=== PATIENT | male | born 1970 | race Caucasian/White ===

== ENCOUNTER 2018-08-22 14:49 | Day surgery (SDC) | payer BC ==
[2018-08-21 16:12] VITALS: BMI 52.2
[~2018-08-22 14:49] MED LIST: PROPOFOL 200 MG/20 ML VIAL ONE
[2018-08-22] MEDS ORDERED: PROPOFOL 40 ML ONE (15:35)
--- NOTE | 2018-08-23 00:04 | ECHO ---
DATE OF SERVICE: 08/22/18 PREPROCEDURE DIAGNOSIS: Atrial flutter. PROCEDURE: Transesophageal echo. The patient was brought down to the procedural area for planned transesophageal echo. The anesthesiol ogist provided with sedation for the patient. Please see their notes for detail. Once adequate sedati on was achieved, the transesophageal probe was inserted into the mouth and into the esophagus and ort hogonal views were then obtained. Left ventricle is normal size with normal systolic function. EF estimated about -50-55%. Left atrium is mildly dilated. The left atrial appendage is large with no evidence of mass or thrombu s. Right atrium is mildly dilated. Right ventricle is normal size. The aortic valve is structural normal. No stenosis or regurgitation. Mitral valve is structurally normal. There is mild MR. Tricuspid valve is structurally normal. There is mild TR. No stenosis. Pulmonary valve is structurally normal. No significant stenosis or regurgitation.. CONCLUSIONS: 1. Normal systolic function. EF 50-55%. 2. Mildly dilated left atrium with left atrial appendage widely patent with no evidence of mass or th rombus. 3. Mild MR. 4. Mild TR
--- NOTE | 2018-08-23 07:24 | OP ---
CARDIOLOGY PROCEDURE NOTE: Date: 08/22/18 PREPROCEDURE DIAGNOSIS: Atrial flutter. PROCEDURE PERFORMED: Synchronized DC cardioversion. SUMMARY: Mr. Adams is here for a planned cardioversion. He had a ZEESHAN prior, which showed no evidence of mass or thrombus. After adequate sedation was achieved by the anesthesiology department, the pads were alrea dy placed, and the first shock was delivered in a synchronized fashion at 150 joules, which was unsuc cessful. A second shock was delivered at 200 joules, which was unsuccessful. A third shock, after swi tching the pads around, at 300 joules, successfully converted him from atrial flutter into sinus rhyt hm. This was maintained for about 5 minutes and then soon after, he went back into atrial flutter. On e more shock was delivered at 300 joules in a synchronized fashion, successfully converting him back into sinus rhythm, which only lasted for about 3 minutes this time and he converted back into atrial fibrillation. RECOMMENDATIONS: 1. Continue antiarrhythmic, Multaq and full anticoagulation. 2. Will refer to electrophysiology for consideration of an ablation.
== END 2018-08-22 17:05 | disposition home or self-care (01) ==
LOC: CCL 14:49
PROVIDERS: ATTEND Internal Medicine Cardiovascular Disease
PROC: 5A2204Z Restoration of Cardiac Rhythm, Single (ICD-10-PCS; principal; 2018-08-22)
DX: I48.4 Atypical atrial flutter (principal); I48.0 Paroxysmal atrial fibrillation; E66.01 Morbid (severe) obesity due to excess calories; E78.5 Hyperlipidemia, unspecified; I10 Essential (primary) hypertension; Z79.01 Long term (current) use of anticoagulants; Z79.899 Other long term (current) drug therapy
CPT/HCPCS: 92960; 93312; J2704

== ENCOUNTER 2018-09-20 11:55 | Day surgery (SDC) | payer BC ==
[2018-09-19 16:22] VITALS: BMI 52.9
[2018-09-20] MEDS ORDERED: PROPOFOL 20 ML ONE (13:10)
[2018-09-20 13:20] LABS: #Eosinphils 0.4 thou/uL (0.0-0.7); #Lymphocytes 1.6 thou/uL (1.20-3.40); #Monocytes 0.5 thou/uL (0.11-0.59); #Neutrophils 4.5 thou/uL (1.40-6.50); %Basophils 0.7 % (0.0-1.0); %Eosinophils 5.6 % (0.0-10.0); %Lymphocytes 22.8 % (21.0-51.0); %Monocytes 6.8 % (0.0-10.0); %Neutrophils 64.2 % (42.0-75.0); Mean Corpuscular HGB CONC 33.8 g/dL (32.0-36.0); Mean Corpuscular Hemoglobin 31.1 pg (27.0-31.0); Mean Corpuscular Volume 91.7 fL (78.0-98.0); Mean Platelet Volume 8.6 fL (7.4-10.4); Platelet Count 201 thou/uL (130-400); RBC Distribution Width 11.7 % (11.5-14.5); Red Blood Cell (RBC) Count 5.15 mill/uL (4.70-6.10)
[2018-09-20 13:27] LABS: INR-International Normal Ratio 1.3; PTT 32.8 SEC (22.9-36.1); Prothrombin Time 16.3 SEC (12.0-14.7)
[2018-09-20 13:43] LABS: Anion Gap 10 mmol/L (10-20); BUN (Urea Nitrogen) 12 mg/dL (8.9-20.6); Calc. Creatinine Clearance 269 mL/min (70-130); Calcium 8.9 mg/dL (7.8-10.44); Carbon Dioxide 27 mmol/L (22-29); Chloride 108 mmol/L (98-107); Estimated GFR-MDRD Greater than 90; Glucose 104 mg/dL (70-105); Potassium 3.7 mmol/L (3.5-5.1); Sodium 141 mmol/L (136-145)
--- NOTE | 2018-09-20 21:12 | OP ---
DATE OF PROCEDURE: 09/20/2018 PROCEDURE PERFORMED: Cardioversion Report. REASON FOR PROCEDURE: Mr. Adams is a 48-year-old man with prior history of cardiomyopathy, but normalizing LV function, persistent atrial fibrillation resistant to Multaq and prior cardioversion attempts. He also has morbid obesity. Here for a cardioversion after flecainide loading. He has been chronically anticoagulated with Eliquis. DESCRIPTION OF PROCEDURE: The patient received propofol by Anesthesia specialist. After adequate level of sedation achieved, a synchronized 300 joule shock promptly converted the patient back to sinus rhythm with a rate is 67 beats per minute. The patient tolerated the procedure well. No complications noted. PLAN: Continue anticoagulation and flecainide and aggressive efforts for weight loss, possible ablation after some weight loss achieved. Job ID: [id number]
== END 2018-09-20 14:34 | disposition home or self-care (01) ==
LOC: CCL 11:55
PROVIDERS: ATTEND Internal Medicine Cardiovascular Disease
PROC: 5A2204Z Restoration of Cardiac Rhythm, Single (ICD-10-PCS; principal; 2018-09-20)
DX: I48.1 Persistent atrial fibrillation (principal); I48.92 Unspecified atrial flutter; I42.0 Dilated cardiomyopathy; E66.01 Morbid (severe) obesity due to excess calories; Z68.43 Body mass index [BMI] 50.0-59.9, adult; Z79.899 Other long term (current) drug therapy
CPT/HCPCS: 80048; 85025; 85610; 85730; 92960; J2704

== ENCOUNTER → 2018-10-03 | Day surgery (SDC) | payer OTHER ==
[2018-10-02 12:17] VITALS: BMI 52.9
[~2018-10-03] MED LIST changes: +PROPOFOL 0 ML ONE; +PROPOFOL 20 ML ONE
--- NOTE | 2018-10-03 22:16 | OP ---
DATE OF PROCEDURE: 10/03/2018 TYPE OF STUDY: Electrical cardioversion report. REFERRING PHYSICIAN: Dr. Aramis Urrutia. REASON FOR PROCEDURE: Mr. Adams is a 48-year-old man with recurrent atrial fibrillation, prior cardioversions on flecainide 100 mg. He has been increased to 150 mg twice a day. He also has morbid obesity at 395 pounds. BMI 52. He is here for repeated cardioversion on increased dose of flecainide 150 mg twice a day. He is well anticoagulated with Eliquis without fail. DESCRIPTION OF PROCEDURE: The patient received propofol by Anesthesia specialist. After adequate level of sedation achieved, a 300 joule synchronized shocks promptly converted the patient back to sinus rhythm. The patient tolerated the procedure well. No complications noted. PLAN: Continue flecainide 150 mg twice a day and Eliquis. Routine followup in the office. Continue efforts for weight loss. Job ID: [id number]
== END ==
LOC: CCL 12:55
PROVIDERS: ATTEND Internal Medicine Cardiovascular Disease
PROC: 5A2204Z Restoration of Cardiac Rhythm, Single (ICD-10-PCS; principal; 2018-10-03)
DX: I48.1 Persistent atrial fibrillation (principal); I42.8 Other cardiomyopathies; I10 Essential (primary) hypertension; E66.01 Morbid (severe) obesity due to excess calories; Z68.43 Body mass index [BMI] 50.0-59.9, adult; Z79.01 Long term (current) use of anticoagulants; Z79.82 Long term (current) use of aspirin; Z79.899 Other long term (current) drug therapy
CPT/HCPCS: 92960; J2704

== ENCOUNTER → 2018-10-28 | Day surgery (SDC) | payer OTHER ==
[2018-10-25 11:42] VITALS: BMI 48.1
[2018-10-28 13:12] LABS: INR-International Normal Ratio 1.2; PTT 33.5 SEC (22.9-36.1); Prothrombin Time 15.7 SEC (12.0-14.7)
[2018-10-28 13:13] LABS: #Eosinphils 0.3 thou/uL (0.0-0.7); #Lymphocytes 1.8 thou/uL (1.20-3.40); #Monocytes 0.5 thou/uL (0.11-0.59); #Neutrophils 4.6 thou/uL (1.40-6.50); %Basophils 0.6 % (0.0-1.0); %Eosinophils 4.2 % (0.0-10.0); %Lymphocytes 24.6 % (21.0-51.0); %Monocytes 6.9 % (0.0-10.0); %Neutrophils 63.7 % (42.0-75.0); Hemoglobin 16.4 g/dL (14.0-18.0); Mean Corpuscular HGB CONC 33.5 g/dL (32.0-36.0); Mean Corpuscular Hemoglobin 31.4 pg (27.0-31.0); Mean Corpuscular Volume 93.7 fL (78.0-98.0); Mean Platelet Volume 8.7 fL (7.4-10.4); Platelet Count 180 thou/uL (130-400); RBC Distribution Width 11.6 % (11.5-14.5); Red Blood Cell (RBC) Count 5.23 mill/uL (4.70-6.10); White Blood Cell (WBC) Count 7.1 thou/uL (4.8-10.8)
[2018-10-28 13:16] LABS: Anion Gap 11 mmol/L (10-20); BUN (Urea Nitrogen) 13 mg/dL (8.9-20.6); Calc. Creatinine Clearance 220 mL/min (70-130); Carbon Dioxide 26 mmol/L (22-29); Chloride 107 mmol/L (98-107); Estimated GFR-MDRD 84; Glucose 99 mg/dL (70-105); Potassium 4.1 mmol/L (3.5-5.1); Sodium 140 mmol/L (136-145)
--- NOTE | 2018-10-28 15:45 | OP ---
DATE OF PROCEDURE: 10/28/2018 ELECTIVE CARDIOVERSION REPORT. ADDITIONAL REFERRING PHYSICIAN: Dr. Aramis Urrutia. REASON FOR PROCEDURE: Mr. Adams is a very pleasant 48-year-old man with prior history of persisting atrial fibrillation, nonischemic cardiomyopathy. He underwent flecainide loading and cardioversion in the past, but did not maintain sinus rhythm, decided to repeat cardioversion. He is now undergoing repeat cardioversion after amiodarone loading for last two weeks. He has morbid obesity with BMI of 52. He is chronically anticoagulated with Eliquis without fail. DESCRIPTION OF PROCEDURE: The patient received propofol by Anesthesia specialist. After adequate level of sedation achieved, a synchronized 300 joules shock promptly converted the patient back to sinus rhythm. CONCLUSION: Successful cardioversion. PLAN: Continue amiodarone taper and anticoagulation, routine followup. Job ID: [id number]
--- NOTE | 2018-10-29 09:23 | EKG ---
Test Reason : POST CARDIOVERSION Blood Pressure : / mmHG Vent. Rate : 057 BPM Atrial Rate : 057 BPM P-R Int : 160 ms QRS Dur : 102 ms QT Int : 466 ms P-R-T Axes : 014 016 032 degrees QTc Int : 453 ms Sinus bradycardia Possible Inferior infarct , age undetermined Abnormal ECG When compared with ECG of 28-OCT-2018 13:10, Sinus rhythm has replaced Atrial fibrillation Vent. rate has decreased BY [address] Daniel HALE ([id number]) on 10/29/2018 9:23:34 AM Referred By: [facility] Confirmed By:DR. Daniel HALE
== END ==
LOC: CCL 11:28
PROVIDERS: ATTEND Internal Medicine Cardiovascular Disease
PROC: 5A2204Z Restoration of Cardiac Rhythm, Single (ICD-10-PCS; principal; 2018-10-28)
DX: I48.1 Persistent atrial fibrillation (principal); E66.01 Morbid (severe) obesity due to excess calories; Z68.43 Body mass index [BMI] 50.0-59.9, adult; I42.0 Dilated cardiomyopathy; I34.0 Nonrheumatic mitral (valve) insufficiency; I36.1 Nonrheumatic tricuspid (valve) insufficiency; Z79.01 Long term (current) use of anticoagulants; Z79.82 Long term (current) use of aspirin; Z79.899 Other long term (current) drug therapy
CPT/HCPCS: 36415; 80048; 85025; 85610; 85730; 92960; 93005; 93010; J2704

== ENCOUNTER 2018-12-04 07:31 | Outpatient (CLI) | payer OTHER | END 2018-12-04 07:32 | disposition home or self-care (01) | LOC: CP 07:31 | PROVIDERS: ATTEND Internal Medicine Cardiovascular Disease | DX: Z51.81 Encounter for therapeutic drug level monitoring (principal); Z79.899 Other long term (current) drug therapy | CPT/HCPCS: 94060; 94727; 94729 ==

== ENCOUNTER → 2018-12-05 | Day surgery (SDC) | payer OTHER ==
--- NOTE | 2018-12-05 20:29 | EKG ---
Test Reason : PREOP Blood Pressure : / mmHG Vent. Rate : 052 BPM Atrial Rate : 052 BPM P-R Int : 152 ms QRS Dur : 106 ms QT Int : 480 ms P-R-T Axes : 017 016 033 degrees QTc Int : 446 ms Sinus bradycardia with occasional Premature ventricular complexes Otherwise normal ECG When compared with ECG of 28-OCT-2018 14:31, Premature ventricular complexes are now Present Borderline criteria for Inferior infarct are no longer Present Confirmed by DR. Johanna SRINIVASAN ([id number]) on 12/05/2018 8:29:29 PM Referred By: ANIA Confirmed By:DR. Johanna SRINIVASAN
== END ==
LOC: CCL 11:17
PROVIDERS: ATTEND Internal Medicine Cardiovascular Disease
DX: I48.1 Persistent atrial fibrillation (principal); Z53.9 Procedure and treatment not carried out, unspecified reason
CPT/HCPCS: 93005; 93010

== ENCOUNTER 2019-03-07 11:25 | Day surgery (SDC) | payer OTHER ==
[~2019-03-07 11:25] MED LIST changes: -PROPOFOL 0 ML ONE; -PROPOFOL 20 ML ONE
[2019-03-07] MEDS ORDERED: PROPOFOL 20 ML ONE (12:07)
[2019-03-07 12:10] LABS: #Basophils 0.1 thou/uL (0.0-0.2); #Eosinphils 0.2 thou/uL (0.0-0.7); #Lymphocytes 2.1 thou/uL (1.20-3.40); #Monocytes 0.5 thou/uL (0.11-0.59); #Neutrophils 4.2 thou/uL (1.40-6.50); %Basophils 0.8 % (0.0-1.0); %Eosinophils 3.5 % (0.0-10.0); %Lymphocytes 29.6 % (21.0-51.0); %Monocytes 7.4 % (0.0-10.0); %Neutrophils 58.7 % (42.0-75.0); Hemoglobin 15.7 g/dL (14.0-18.0); Mean Corpuscular Hemoglobin 31.8 pg (27.0-31.0); Mean Corpuscular Volume 93.6 fL (78.0-98.0); Mean Platelet Volume 8.3 fL (7.4-10.4); Platelet Count 178 thou/uL (130-400); RBC Distribution Width 11.6 % (11.5-14.5); Red Blood Cell (RBC) Count 4.95 mill/uL (4.70-6.10); White Blood Cell (WBC) Count 7.1 thou/uL (4.8-10.8)
[2019-03-07 12:16] LABS: INR-International Normal Ratio 1.3; Prothrombin Time 16.4 SEC (12.0-14.7)
[2019-03-07 12:31] LABS: Anion Gap 11 mmol/L (10-20); BUN (Urea Nitrogen) 16 mg/dL (8.9-20.6); Calc. Creatinine Clearance 0 mL/min (70-130); Calcium 8.9 mg/dL (7.8-10.44); Carbon Dioxide 25 mmol/L (22-29); Chloride 106 mmol/L (98-107); Estimated GFR-MDRD Greater than 90; Glucose 101 mg/dL (70-105); Potassium 3.8 mmol/L (3.5-5.1); Sodium 138 mmol/L (136-145)
--- NOTE | 2019-03-07 20:38 | OP ---
DATE OF PROCEDURE: 03/07/2019 REASON FOR PROCEDURE: Mr. Adams is a 48-year-old male with history of persistent atrial fibrillation with repeat cardioversions in the past. He has been on maintenance amiodarone, now had recurrence after 2 months of sinus rhythm. He has been well anticoagulated, is here for a cardioversion. DESCRIPTION OF PROCEDURE: The patient received propofol by anesthesia specialist. After adequate level of sedation achieved, a synchronized 200-joule shock promptly converted the patient back to sinus rhythm, 70 beats per minute, sinus mechanism. CONCLUSIONS: Successful cardioversion. PLAN: Continue current regimen including amiodarone 200 mg a day and Eliquis. Plans for a pulmonary venous isolation procedure in the future are made. Job ID: [id number]
== END 2019-03-07 14:44 | disposition home or self-care (01) ==
LOC: CCL 11:25
PROVIDERS: ATTEND Internal Medicine Cardiovascular Disease
PROC: 5A2204Z Restoration of Cardiac Rhythm, Single (ICD-10-PCS; principal; 2019-03-07)
DX: I48.1 Persistent atrial fibrillation (principal); E66.01 Morbid (severe) obesity due to excess calories; Z68.43 Body mass index [BMI] 50.0-59.9, adult; Z79.01 Long term (current) use of anticoagulants; Z79.84 Long term (current) use of oral hypoglycemic drugs; Z79.899 Other long term (current) drug therapy
CPT/HCPCS: 80048; 85025; 85610; 85730; 92960; J2704

== ENCOUNTER 2019-03-20 19:30 | Outpatient (CLI) | payer OTHER ==
[2019-03-06 16:07] VITALS: BMI 48.8
== END 2019-03-20 19:31 | disposition home or self-care (01) ==
LOC: SLEEPLAB 19:30
PROVIDERS: ATTEND Internal Medicine Pulmonary Disease
DX: G47.33 Obstructive sleep apnea (adult) (pediatric) (principal); R53.83 Other fatigue; R06.83 Snoring; R35.1 Nocturia; I51.9 Heart disease, unspecified; G47.00 Insomnia, unspecified; G47.10 Hypersomnia, unspecified; I10 Essential (primary) hypertension; I48.91 Unspecified atrial fibrillation; E66.9 Obesity, unspecified; Z68.42 Body mass index [BMI] 45.0-49.9, adult
CPT/HCPCS: 95811

== ENCOUNTER 2019-04-01 05:46 | Observation (INO) | payer OTHER ==
[2019-03-31 13:53] VITALS: BMI 48.8
[2019-04-01 06:45] LABS: #Basophils 0.1 thou/uL (0.0-0.2); #Eosinphils 0.2 thou/uL (0.0-0.7); #Lymphocytes 2.8 thou/uL (1.20-3.40); #Monocytes 0.5 thou/uL (0.11-0.59); #Neutrophils 3.9 thou/uL (1.40-6.50); %Basophils 0.9 % (0.0-1.0); %Lymphocytes 37.6 % (21.0-51.0); %Neutrophils 51.4 % (42.0-75.0); Hemoglobin 15.9 g/dL (14.0-18.0); Mean Corpuscular HGB CONC 32.2 g/dL (32.0-36.0); Mean Corpuscular Volume 93.2 fL (78.0-98.0); Mean Platelet Volume 8.1 fL (7.4-10.4); Platelet Count 201 thou/uL (130-400); RBC Distribution Width 11.6 % (11.5-14.5); Red Blood Cell (RBC) Count 5.32 mill/uL (4.70-6.10); White Blood Cell (WBC) Count 7.6 thou/uL (4.8-10.8)
[2019-04-01] MEDS ORDERED: Heparin 10,000 UNITS/1 ML VIAL ONE ×4 (06:45→10:10)
[2019-04-01 06:47] LABS: INR-International Normal Ratio 1.3; Prothrombin Time 15.9 SEC (12.0-14.7)
[2019-04-01 06:48] LABS: PTT 36.3 SEC (22.9-36.1)
[2019-04-01 06:58] LABS: Anion Gap 13 mmol/L (10-20); BUN (Urea Nitrogen) 18 mg/dL (8.9-20.6); Calc. Creatinine Clearance 177 mL/min (70-130); Calcium 8.9 mg/dL (7.8-10.44); Carbon Dioxide 27 mmol/L (22-29); Chloride 105 mmol/L (98-107); Estimated GFR-MDRD 64; Glucose 89 mg/dL (70-105); Sodium 141 mmol/L (136-145)
[2019-04-01] MEDS ORDERED: Midazolam HCl 2 mg/2 ml Vial ONE (07:21)
[2019-04-01] MEDS ORDERED: Fentanyl 100 MCG/2 ML VIAL ONE ×2 (07:21→12:54)
[2019-04-01] MEDS ORDERED: Isoproterenol 0.2 MG/1 ML AMP ONE (10:10)
[2019-04-01] MEDS ORDERED: SUGAMMADEX SODIUM 200 MG/2 ML VIAL ONE (11:22)
[2019-04-01] MEDS ORDERED: Protamine Sulfate 50 MG/5 ML VIAL ONE (11:39)
[2019-04-01] MEDS ORDERED: Carvedilol 3.125 MG TAB ONE (12:34)
[2019-04-01] MEDS: Carvedilol 6.25 MG TAB PO SCH (13:22)
[2019-04-01] MEDS ORDERED: Dexamethasone 20 MG/5 ML VIAL ONE (15:54)
[2019-04-01] MEDS ORDERED: Glycopyrrolate 0.2 MG/ML 5 ML SYRINGE ONE (15:54)
[2019-04-01] MEDS ORDERED: Heparin 30,000 units/30 ml VIAL ONE (15:54)
[2019-04-01] MEDS ORDERED: Vecuronium 10 MG VIAL ONE (15:54)
[2019-04-01] MEDS ORDERED: Lidocaine 1% PF 5 ML VIAL ONE (15:54)
[2019-04-01] MEDS ORDERED: Rocuronium Bromide 10 MG/ML (10ML VIAL) ONE (15:54)
[2019-04-01] MEDS ORDERED: PROPOFOL 200 MG/20 ML VIAL ONE (15:54)
[2019-04-01] MEDS ORDERED: Ibuprofen 200 MG TAB PO PRN (16:51)
[2019-04-01] MEDS ORDERED: Loratadine 10 MG TAB PO PRN (16:51)
[2019-04-01] MEDS ORDERED: Bisacodyl 5 MG TAB PO PRN (16:51)
[2019-04-01] MEDS ORDERED: Benzonatate 100 MG CAP PO PRN (16:51)
[2019-04-01] MEDS ORDERED: Senokot S 8.6-50 MG TAB PO PRN (16:51)
[2019-04-01] MEDS ORDERED: Ondansetron PF 4 MG/2 ML Vial IVP PRN (16:51)
[2019-04-01] MEDS ORDERED: Ondansetron ODT 4 MG TAB PO PRN (16:51)
[2019-04-01] MEDS ORDERED: hydrALAZINE 20 MG/ML VIAL SLOW IVP PRN (16:51)
[2019-04-01] MEDS ORDERED: Acetaminophen 500 MG TAB PO PRN (16:51)
[2019-04-01] MEDS ORDERED: hydrOXYzine 25 MG TAB PO PRN (16:51)
[2019-04-01] MEDS ORDERED: Morphine 4 MG/ML VIAL SLOW IVP PRN (16:54)
--- NOTE | 2019-04-01 17:34 | CON ---
DATE OF CONSULTATION: 04/01/2019 HISTORY OF PRESENT ILLNESS: Mr. Adams presents for a scheduled electrophysiology evaluation and radiofrequency ablation if necessary. He reports that for the past 2-3 weeks he has had increasing fluttering, shortness of breath, and chest pressure that has been associated in the past with runs of atrial fibrillation. He reports that in 07/2018, he was diagnosed with AFib and has been tried on multiple different medication regimens including antiarrhythmics and rate controlling medications. He has had multiple cardioversions in the past. Prior to this cardioversion, he has been on amiodarone 200 mg with what he reports is the most sustained run of not having AFib. More recently, he has had his symptoms come back, was evaluated by Electrophysiology, and it was decided that electrophysiology evaluation and radiofrequency ablation would be the best course of action at this point. He was admitted today. He underwent the procedure earlier this morning. He tolerated the procedure well. Afterwards, his only complaint is some right-sided rib pain. He denies any syncope, changes in vision, shortness of breath, chest pain, numbness, tingling, or other concerns. He reports he thinks headache is coming on. Other than that, he has no complaints. PAST MEDICAL HISTORY: 1. AFib/flutter. 2. Hypertension. 3. BPH. 4. Hyperlipidemia. 5. Morbid obesity. ALLERGIES: NO KNOWN DRUG ALLERGIES. SURGICAL HISTORY: Reveals a heart catheterization, that was clean, almost a year ago. FAMILY HISTORY: Includes a cerebrovascular accidents in the beginning at young age in his mom at 21. SOCIAL HISTORY: The patient denies tobacco, alcohol, or drug use. REVIEW OF SYSTEMS: HEENT: Denies visual disturbance. Reports headache coming on. CARDIOVASCULAR: Denies chest pain, fluttering, or shortness of breath. RESPIRATORY: Denies cough, congestion, or shortness of breath. GI: Denies recent constipation, diarrhea, nausea, or vomiting. : Reports waking up frequently at night to urinate. NEUROVASCULAR: Denies cool extremities, numbness, or tingling. PHYSICAL EXAMINATION: GENERAL: The patient is morbidly obese, but in no acute distress. HEENT: Normocephalic and atraumatic. Pupils are equally reactive to light. Extraocular motions appear to be intact. NECK: No bruits auscultated. CHEST: S1 and S2 present. Regular rate and rhythm. Clear to auscultation bilaterally. No wheezing or rales. ABDOMEN: Nondistended. No organomegaly. MSK: He moves all 4 extremities. He is ambulating without difficulty. NEUROLOGIC: Grossly intact. EXTREMITIES: Minimal edema noted in lower extremities. VITAL SIGNS: Temperature 98.1, pulse 79, respirations 18, O2 saturation 95% on room air, and blood pressure 146/78. IMAGING STUDIES: No imaging to review. LABORATORY DATA: CBC and CMP within normal limits. Activated clotting time elevated most recently at 361. ASSESSMENT: 1. Atrial fibrillation/flutter: Status post radiofrequency ablation. Amiodarone discontinued by Dr. Gonsalez. Continuous cardiac monitoring on observation. The patient currently in normal sinus rhythm. We will monitor overnight. Consider restarting amiodarone if conversion occurs. Continue anticoagulation with Eliquis. 2. Hypertension: Most recently above goal. We will restart home medicines and monitor. Hydralazine for systolic blood pressures greater than 180. 3. Hyperlipidemia: Continue home medications. 4. Postoperative care: Ibuprofen scheduled. Tylenol scheduled. Morphine p.r.n. for breakthrough severe pain. 5. Disposition: Continuous cardiac monitoring on telemetry. Discharge planning per primary team. Thank you for consult. We will follow along with the patient. Please call for any additional questions or concerns. Job ID: [id number]
--- NOTE | 2019-04-01 18:03 | OP ---
DATE OF PROCEDURE: 04/01/2019 PROCEDURES PERFORMED: 1. Comprehensive EP testing with and without left atrial pacing and recording. 2. Transseptal catheterization x2. 3. Intracardiac echocardiography. CLINICAL INDICATION: Chronic atrial fibrillation. ASA CLASSIFICATION: III. ANESTHESIA: General endotracheal anesthesia per Anesthesiology. ADDITIONAL CARDIAC MEDICATIONS: Isoproterenol 10 mcg/minute infusion. TOTAL HEPARIN GIVEN: 24,000 units. TOTAL PROTAMINE GIVEN: 40 mg. ACUTE COMPLICATIONS: None apparent. TOTAL FLUORO TIME: 0. TOTAL RF TIME: 40 minutes and 35 seconds. METHODS: After informed consent was obtained, the patient was taken to the EP lab in a fasting state. Both groins were prepped and draped using ultrasound guidance. The right and left femoral veins were accessed and wire was inserted into the central venous system. The wires were used to place an 11 and 8-Maltese sheath in the left groin, two 8-Maltese sheaths in the right groin. All 8-Maltese sheaths were replaced by long sheaths for catheter stability. A circular and ablation catheter was placed in right groin and advanced up to the right atrium. A 3D map was obtained at the right atrium and coronary sinus. A 20-pole catheter was placed in left groin, advanced up to the coronary sinus. An echo probe was placed in left groin, advanced up to the right atrium and right ventricle for imaging. The patient was then anticoagulated and transeptal catheterization was performed. A 3D map was obtained in the left atrium and ablation was delivered isolating all four pulmonary veins and the posterior wall of the left atrium. The patient's arrhythmia then organized into a typical isthmus dependent flutter, which was ablated from the right side after an observation period on isoproterenol challenge. Touch-up ablation was performed to the right inferior pulmonary vein and re-ablation of the CTI flutter. No further arrhythmias were seen. Catheter was then removed. Sheaths were pulled. Hemostasis was achieved with direct pressure. RESULTS: 1. Baseline intervals: Spontaneous sinus cycle length 691 milliseconds. UT interval 188 milliseconds. QRS interval 104 milliseconds. QT interval 367 milliseconds. HV interval 47 milliseconds. 2. Atrial function: The patient was in coarse atrial fibrillation. Ablation was performed, isolating all four pulmonary veins and posterior wall of the left atrium. A CTI line was performed, which terminated the patient's arrhythmia. No other inducible arrhythmias were seen. 3. Ablation details: A total of 40 minutes and 35 seconds of RF were delivered in the left atrium and along the CTI line to terminate flutter and atrial fibrillation. An open irrigated [employer]nn ablation catheter was used for all ablations. IMPRESSION: Successful PVAI with CTI ablation. RECOMMENDATION: Oral anticoagulation. Job ID: [id number]
[2019-04-01] MEDS ORDERED: Atorvastatin Calcium 10 MG TAB PO SCH (21:00)
[2019-04-01] MEDS ORDERED: Tamsulosin HCl 0.4 MG CAP PO SCH (21:00)
[2019-04-01] MEDS ORDERED: Atorvastatin Calcium 20 MG TAB PO SCH (21:00)
[2019-04-01] MEDS ORDERED: Carvedilol 6.25 MG TAB PO SCH (21:00)
[2019-04-01] MEDS: Apixaban 5 MG TAB PO SCH (21:19)
[2019-04-02 08:12] VITALS: BP 162/89; TEMP 98
[2019-04-02] MEDS ORDERED: Magnesium Oxide 250 MG TAB PO SCH (09:00)
[2019-04-02] MEDS ORDERED: Lisinopril 2.5 MG TAB PO SCH (09:00)
[2019-04-02] MEDS: Apixaban 5 MG TAB PO SCH (09:03)
[2019-04-02] MEDS: Carvedilol 6.25 MG TAB PO SCH (09:03)
--- NOTE | 2019-04-02 10:29 | PDOC.FM ---
- Subjective Subjective: pt seen resting comfortably today, denies fluttering, SOB or Chest pain - Objective Vital Signs & Weight: Vital Signs (12 hours) Temp Pulse Resp BP Pulse Ox 04/02/19 09:03 72 04/02/19 07:52 98 F 72 16 162/89 H 95 04/02/19 04:00 97.6 F 73 18 155/103 H 96 04/01/19 23:39 98.7 F 73 20 138/90 96 Weight Weight 167.829 kg I&O: 04/01/19 04/02/19 04/03/19 06:59 06:59 06:59 Intake Total 1386 Output Total 0 Balance 1386 Result Diagrams: 04/01/19 06:29 04/01/19 06:29 Phys Exam - Physical Examination Constitutional: NAD HEENT: oral pharynx no lesions Neck: no JVD Respiratory: clear to auscultation bilateral Cardiovascular: RRR, no significant murmur Gastrointestinal: soft Musculoskeletal: pulses present Neurological: moves all 4 limbs Psychiatric: normal affect Skin: no rash Dx/Plan (1) Afib Code(s): I48.91 - UNSPECIFIED ATRIAL FIBRILLATION Status: Acute (2) HTN (hypertension) Code(s): I10 - ESSENTIAL (PRIMARY) HYPERTENSION Status: Acute (3) Obesity Code(s): E66.9 - OBESITY, UNSPECIFIED Status: Acute - Plan Plan: afib/flutter - s/p ablation, NSR overnight - amio DCd - continue NOAC - f/u EP, DC per primary team HTN - continue home meds - above goal today, ok to be titrated outpatient HLD - continue home meds Obesity - encourage weight loss dispo: pt stable from medical standpoint, we will sign off - dc per EP - please call for further questions or concerns Addendum - Attending - Attending Attestation Date/Time: 04/02/19 4835 I personally evaluated the patient and discussed the management with Dr. Hunter. I agree with the History, Examination, Assessment and Plan documented above with any addition or exceptions noted below.
--- NOTE | 2019-04-02 16:53 | EKG ---
Test Reason : PREOP Blood Pressure : / mmHG Vent. Rate : 093 BPM Atrial Rate : 197 BPM P-R Int : 000 ms QRS Dur : 106 ms QT Int : 394 ms P-R-T Axes : 000 085 017 degrees QTc Int : 489 ms Atrial fibrillation Non-specific intra-ventricular conduction delay Prolonged QT Abnormal ECG Confirmed by CARITO UNDERWOOD ([id number]) on 04/02/2019 4:52:50 PM Referred By: SHANNEN Confirmed By:CARITO UNDERWOOD
--- NOTE | 2019-04-03 05:41 | DIS ---
DATE OF ADMISSION: 04/01/2019 DATE OF DISCHARGE: 04/02/2019 DIAGNOSES: I am discharging Mr. Adams after his pulmonary venous isolation procedure. His admission date was 04/01/2019. His diagnoses were on admission; 1. Persistent atrial fibrillation with recurrences despite of amiodarone. 2. Status post elective pulmonary venous isolation procedure. 3. Chronic anticoagulation. 4. Morbid obesity. HOSPITAL COURSE: Mr. Adams underwent a pulmonary venous isolation procedure by Dr. Gonsalez yesterday. A total of 40 minutes and 35 seconds of ablation isolating all 4 pulmonary veins as well as the posterior wall. Cavotricuspid isthmus ablation was also performed to manifest atrial flutter. Subsequently, he remained stable overnight. Following day, his vital signs were stable. Blood pressure is 162/89, heart rate 72, respiratory rate 16, temperature 98 degrees Fahrenheit. PHYSICAL EXAMINATION: GENERAL: Reveals no groin hematoma. Alert and oriented man. NECK: Jugular veins not prominent. CHEST: Clear. HEART: Sounds are regular to rate and rhythm. No chest pains. No palpitations noted. Telemetry reveals sinus rhythm. CONCLUSION: Stable patient one day after pulmonary venous isolation and cavotricuspid isthmus ablation procedure. PLAN: Resume oral anticoagulant with Eliquis 5 mg twice a day. Stop Multaq. Continue Lipitor, Tessalon, Dulcolax, and Coreg 12.5 mg twice a day as before. Job ID: [id number]
== END 2019-04-02 11:05 | disposition home or self-care (01) ==
LOC: CCL 05:46 → 2SW 08:00
PROVIDERS: ADMIT Internal Medicine Cardiovascular Disease; ATTEND Internal Medicine Cardiovascular Disease
DX: I48.1 Persistent atrial fibrillation (principal); I48.2 Chronic atrial fibrillation; I48.92 Unspecified atrial flutter; I11.0 Hypertensive heart disease with heart failure; I50.30 Unspecified diastolic (congestive) heart failure; E66.01 Morbid (severe) obesity due to excess calories; Z68.43 Body mass index [BMI] 50.0-59.9, adult; Z79.01 Long term (current) use of anticoagulants; Z79.899 Other long term (current) drug therapy
CPT/HCPCS: 36415; 76942; 80048; 85025; 85347; 85610; 85730; 93005; 93010; 93613; 93623; 93655; 93656; 93662; C1732; C1759; C1760; C1769; G0378; J1100; J1644; J2001; J2250; J2704; J2720; J3010

== ENCOUNTER 2021-03-10 14:55 | Outpatient (CLI) | payer OTHER | END 2021-03-10 14:56 | disposition home or self-care (01) | LOC: BICRAD 14:55 | PROVIDERS: ATTEND Specialist | DX: S80.01XA Contusion of right knee, initial encounter (principal); M25.561 Pain in right knee ==

== ENCOUNTER 2021-03-30 09:56 | Outpatient (CLI) | payer OTHER | END 2021-03-30 09:57 | disposition home or self-care (01) | LOC: TBSIIMAG 09:56 | PROVIDERS: ATTEND Specialist | DX: M25.561 Pain in right knee (principal); M17.11 Unilateral primary osteoarthritis, right knee; S83.241A Other tear of medial meniscus, current injury, right knee, initial encounter ==